=== PATIENT | male | born 1990 | race Caucasian/White ===

== ENCOUNTER 2019-05-07 10:11 | Emergency (ER) | payer SELFPAY ==
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
[2019-05-07] MEDS ORDERED: HYDROcod/ACETAM 5/325 MG TABLET PO STA (10:41)
--- NOTE | 2019-05-07 11:40 | XRAY Report ---
Reason: right 4th MCP area injury yesterday Procedure Date: 05/07/2019 Accession Number: [id number] / [id number] Procedure: XR - Hand 3 View RT CPT Code: FULL RESULT: EXAM: RIGHT HAND RADIOGRAPHY EXAM DATE: 05/07/2019 11:30 AM. CLINICAL HISTORY: Right 4th MCP area injury yesterday. COMPARISON: None. TECHNIQUE: 3 views. FINDINGS: Bones: Comminuted fracture of the fourth proximal phalanx, with fracture lines extending from the mid to proximal diaphysis to the distal metaphyseal region. Tiny fracture fragment off of the radial aspect of the distal fourth proximal phalanx. Fracture line does not appear to extend to the articular surface. No other fractures are identified. Joints: Normal. No subluxations. Soft Tissues: Diffuse soft tissue swelling of the digit. IMPRESSION: Comminuted fracture of the fourth proximal phalanx. [facility]
[2019-05-07 12:16] VITALS: BP 136/93
== END 2019-05-07 12:46 | disposition home or self-care (01) ==
LOC: ED 10:11
DX: S62.644A Nondisplaced fracture of proximal phalanx of right ring finger, initial encounter for closed fracture (principal); X50.1XXA Overexertion from prolonged static or awkward postures, initial encounter; Y93.16 Activity, rowing, canoeing, kayaking, rafting and tubing; Y92.828 Other wilderness area as the place of occurrence of the external cause
CPT/HCPCS: 29125; 73130; 99282; 99283; A9270